=== PATIENT | female | born 1990 | race American Indian/Alaskan Native ===

== ENCOUNTER 2022-02-24 21:39 | Emergency (ER) | payer MEDICAID ==
[2022-02-24] MEDS ORDERED: KETOROLAC 30 MG/1 ML INJ IV ONE (23:10)
[2022-02-24] MEDS ORDERED: SODIUM CHLORIDE 0.9% 1000 ML 1,000 ML IV ONE (23:10)
[2022-02-24] MEDS ORDERED: METOCLOPRAMIDE 10 MG/2 ML INJ IV ONE (23:10)
[2022-02-24] MEDS ORDERED: diphenhydrAMINE 50 MG/ML VIAL IV ONE (23:10)
--- NOTE | 2022-02-24 23:18 | Emergency Department Report ---
ED Headache HPI - General Chief Complaint: Eye Problems Stated Complaint: BLURRY VISION; migraine headache Source: patient, RN notes reviewed Exam Limitations: no limitations - History of Present Illness Initial Comments: Patient is a 31-year-old -[place] female with a history of asthma and migraine headaches who presents to the ED with complaint of acute onset persistent severe diffuse headache with blurry vision and nausea as well as photophobia for the last 3 hours. Patient states that the symptoms started with blurry vision and tingling sensation in her arms and chest wall and followed by severe headache. Patient describes the headache as typical of her chronic headaches but with worsening aura and prodromal symptoms. Patient denies chest pain, shortness of breath, dizziness, syncope, fever, chills, cough, nasal and sinus congestion, sore throat, palpitations, abdominal pain or vomiting. Timing/Duration: 1-3 hours, constant Quality: severe, constant, pressure, sharp Head Injury Location: frontal Recent Head Trauma: no recent headache/trauma Associated Symptoms: denies symptoms, facial pain, vision changes (Blurry vision). denies: confusion, fatigue, fever/chills, flushing, loss of consciousness, nasal congestion, nasal drainage, numbness in legs/feet, rash, seizures Allergies/Adverse Reactions: Allergies No Known Allergies Allergy (Verified 02/24/22 23:07) Home Medications: Ambulatory Orders Butalb/Acetamin/Caff 50-325-40 [Fioricet 50-325-40] 1 - 2 tab PO Q6HR PRN #15 tab 02/25/22 Ketorolac [Toradol] 10 mg PO Q8H PRN #20 tab 02/25/22 Promethazine [Phenergan] 25 mg PO Q6HR PRN #30 tab 02/25/22 ED Review of Systems ROS: Stated complaint: BLURRY VISION Other details as noted in HPI Constitutional: denies: chills, fever Eyes: other (Bilateral blurry vision and photophobia). denies: eye pain, eye discharge, vision change ENT: denies: ear pain, throat pain Respiratory: denies: cough, shortness of breath, wheezing Cardiovascular: denies: chest pain, palpitations Endocrine: no symptoms reported Gastrointestinal: nausea. denies: abdominal pain, vomiting, diarrhea Genitourinary: denies: urgency, dysuria, discharge Musculoskeletal: denies: back pain, joint swelling, arthralgia Skin: denies: rash, lesions Neurological: headache. denies: weakness, paresthesias Psychiatric: denies: anxiety, depression Hematological/Lymphatic: denies: easy bleeding, easy bruising ED Past Medical Hx - Past Medical History Previous Medical History?: Yes Hx Headaches / Migraines: Yes Hx Asthma: Yes - Surgical History Past Surgical History?: Yes Additional Surgical History: Tubaligation, Ectpoc - Medications Home Medications: Home Medications Medication Instructions Recorded Confirmed Last Taken Type Butalb/Acetamin/Caff 50-325-40 1 - 2 tab PO Q6HR PRN #15 tab 02/25/22 Unknown Rx [Fioricet 50-325-40] Ketorolac [Toradol] 10 mg PO Q8H PRN #20 tab 02/25/22 Unknown Rx Promethazine [Phenergan] 25 mg PO Q6HR PRN #30 tab 02/25/22 Unknown Rx ED Physical Exam - General Limitations: No Limitations General appearance: alert, in no apparent distress - Head Head exam: Present: atraumatic, normocephalic, normal inspection - Eye Eye exam: Present: normal appearance, PERRL, EOMI Pupils: Present: normal accommodation - ENT ENT exam: Present: normal exam, normal orophraynx, mucous membranes moist, TM's normal bilaterally, normal external ear exam - Neck Neck exam: Present: normal inspection, full ROM. Absent: tenderness - Respiratory Respiratory exam: Present: normal lung sounds bilaterally. Absent: respiratory distress, wheezes, rales, rhonchi, chest wall tenderness, accessory muscle use, decreased breath sounds - Cardiovascular Cardiovascular Exam: Present: regular rate, normal rhythm, normal heart sounds. Absent: systolic murmur, diastolic murmur, rubs, gallop - GI/Abdominal GI/Abdominal exam: Present: soft, normal bowel sounds. Absent: tenderness, guarding, rebound, hyperactive bowel sounds - Extremities Exam Extremities exam: Present: normal inspection, full ROM, normal capillary refill. Absent: tenderness - Back Exam Back exam: Present: normal inspection, full ROM. Absent: tenderness, CVA tenderness (R), CVA tenderness (L), muscle spasm, paraspinal tenderness, vertebral tenderness - Neurological Exam Neurological exam: Present: alert, oriented X3, CN II-XII intact, normal gait, reflexes normal - Psychiatric Psychiatric exam: Present: normal affect, normal mood, anxious - Skin Skin exam: Present: warm, dry, intact, normal color. Absent: rash ED Course Vital Signs 02/24/22 02/24/22 23:02 23:34 Temperature 98.5 F Pulse Rate 91 H Respiratory 16 18 Rate Blood Pressure 145/106 [Right] O2 Sat by Pulse 100 Oximetry ED Medical Decision Making - Medical Decision Making This is a 31-year-old -[place] female with a history of asthma and migraine headaches who presents to the ED with complaint of acute onset persiste nt severe diffuse headache with blurry vision and nausea as well as photophobia for the last 3 hours. Patient states that the symptoms started with blurry vision and tingling sensation in her arms and chest wall and followed by severe headache. Patient describes the headache as typical of her chronic headaches but with worsening aura and prodromal symptoms. In the ED, patient is alert and oriented x3 and is not in any distress. Patient was treated in the ED with a cocktail of medications for migraine headaches including Reglan 10 mg IV x1, Benadryl 25 mg IV x1, and Toradol 30 mg IV x1 in addition to normal saline 1 L IV bolus x1. On reevaluation, patient headache resolved, patient has not had any nausea or vomiting while in the ED. Patient stated that the photophobia also resolved. Patient was discharged home on medications and advised to follow-up with her primary care physician in 5 to 7 days for reevaluation. Patient was also advised to return to the ED immediately if symptoms get worse. - Differential Diagnosis Migraine headache; tension headache; sinus headache; anxiety Critical care attestation.: If time is entered above; I have spent that time in minutes in the direct care of this critically ill patient, excluding procedure time. ED Disposition Clinical Impression: Migraine headache with aura Qualifiers: Status migrainosus presence: with status migrainosus Intractability: not intractable Qualified Code(s): G43.101 - Migraine with aura, not intractable, with status migrainosus Nausea & vomiting Qualifiers: Vomiting type: unspecified Qualified Code(s): R11.2 - Nausea with vomiting, unspecified Disposition: 01 HOME / SELF CARE / HOMELESS Is pt being admited?: No Does the pt Need Aspirin: No Condition: Stable Instructions: Recurrent Migraine Headache, [id number], Nausea and Vomiting, Adult, [id number] Additional Instructions: Take medication with food, drink plenty of fluids and follow-up with your primary care physician in 7 to 10 days for reevaluation. Return to the ED immediately if symptoms get worse. Prescriptions: Butalb/Acetamin/Caff 50-325-40 [Fioricet 50-325-40] 1 - 2 tab PO Q6HR PRN #15 tab PRN Reason: Headache Promethazine [Phenergan] 25 mg PO Q6HR PRN #30 tab PRN Reason: Nausea Ketorolac [Toradol] 10 mg PO Q8H PRN #20 tab PRN Reason: Pain Referrals: [facility] [Provider Group] - 3-5 Days Forms: Work/School Release Form(ED) Time of Disposition: 00:59 Print Language: BELARUSIAN
[2022-02-25 01:53] VITALS: BP 142/98
== END 2022-02-25 01:53 | disposition home or self-care (01) ==
LOC: ED 21:39
DX: G43.109 Migraine with aura, not intractable, without status migrainosus (principal); R11.2 Nausea with vomiting, unspecified; J45.909 Unspecified asthma, uncomplicated; Z98.890 Other specified postprocedural states
CPT/HCPCS: 96361; 96374; 96375; 99282; J1200; J1885; J2765; J7030; Q0162

== ENCOUNTER 2022-05-30 19:46 | Emergency (ER) | payer MEDICAID ==
[2022-05-30 20:54] VITALS: BP 122/84
[2022-05-31] MEDS ORDERED: HYDROcodone/ACETAMINOPHEN 5-325 MG TAB PO ONE ×2 (01:41→04:37)
[2022-05-31] MEDS ORDERED: IBUPROFEN 600 MG TAB PO ONE (01:42)
--- NOTE | 2022-05-31 02:51 | Cat Scan Report ---
CT CERVICAL SPINE WO CON INDICATION: NECK PAIN DUE TO FALL. TECHNIQUE: All CT scans at this location are performed using the following dose modulation technique: Automated exposure control. CONTRAST: None. COMPARISON: None available. FINDINGS: Satisfactory alignment without vertebral compression or significant degenerative change. No soft tissue injury or suspicious soft tissue abnormality. IMPRESSION: Negative CT cervical spine. Signer Name: Edgardo Lamb MD Signed: 05/31/2022 2:46 AM Workstation Name: [id number]
--- NOTE | 2022-05-31 04:17 | Emergency Department Report ---
ED Fall HPI - General Chief Complaint: Fall Stated Complaint: FALL, NECKPAIN, BACK PAIN Time Seen by Provider: 05/31/22 01:32 Source: patient Mode of arrival: Ambulatory - History of Present Illness Initial Comments: 30-year-old female no significant past medical history reports to the ER after falling down about 10 stairs on Friday about 5 days ago. Patient denies no loss of consciousness, no headache and no head injury. Patient reports right- sided low back pain and neck pain. No numbness or tingling in her legs. 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 Patient has not taken anything for her pain currently. Pain is about an 8 out of 10. No other acute signs or symptoms noted. No loss of bowel or bladder function. - Related Data Previous Rx's Medication Instructions Recorded Last Taken Type Butalb/Acetamin/Caff 50-325-40 1 - 2 tab PO Q6HR PRN #15 tab 02/25/22 Unknown Rx [Fioricet 50-325-40] Ketorolac [Toradol] 10 mg PO Q8H PRN #20 tab 02/25/22 Unknown Rx Promethazine [Phenergan] 25 mg PO Q6HR PRN #30 tab 02/25/22 Unknown Rx Ibuprofen [Motrin] 600 mg PO Q8H PRN 7 Days #21 tablet 05/31/22 Unknown Rx methOCARBAMOL [Robaxin TAB] 500 mg PO BID PRN 7 Days #21 tab 05/31/22 Unknown Rx Allergies Allergy/AdvReac Type Severity Reaction Status Date / Time No Known Allergies Allergy Verified 02/24/22 23:07 ED Review of Systems ROS: Stated complaint: FALL, NECKPAIN, BACK PAIN Other details as noted in HPI Comment: All other systems reviewed and negative Musculoskeletal: back pain, myalgia, other (Right lower back pain) ED Past Medical Hx - Past Medical History Previous Medical History?: Yes Hx Headaches / Migraines: Yes Hx Asthma: Yes - Surgical History Additional Surgical History: Tubaligation, Ectpoc - Medications Home Medications: Home Medications Medication Instructions Recorded Confirmed Last Taken Type Butalb/Acetamin/Caff 50-325-40 1 - 2 tab PO Q6HR PRN #15 tab 02/25/22 Unknown Rx [Fioricet 50-325-40] Ketorolac [Toradol] 10 mg PO Q8H PRN #20 tab 02/25/22 Unknown Rx Promethazine [Phenergan] 25 mg PO Q6HR PRN #30 tab 02/25/22 Unknown Rx Ibuprofen [Motrin] 600 mg PO Q8H PRN 7 Days #21 tablet 05/31/22 Unknown Rx methOCARBAMOL [Robaxin TAB] 500 mg PO BID PRN 7 Days #21 tab 05/31/22 Unknown Rx ED Physical Exam - General Limitations: No Limitations General appearance: alert, in no apparent distress - Head Head exam: Present: atraumatic, normocephalic - Eye Eye exam: Present: normal appearance - ENT ENT exam: Present: mucous membranes moist - Neck Neck exam: Present: normal inspection - Respiratory Respiratory exam: Present: normal lung sounds bilaterally. Absent: respiratory distress - Cardiovascular Cardiovascular Exam: Present: regular rate, normal rhythm. Absent: systolic murmur, diastolic murmur, rubs, gallop - GI/Abdominal GI/Abdominal exam: Present: soft, normal bowel sounds - Extremities Exam Extremities exam: Present: normal inspection - Back Exam Back exam: Present: normal inspection, tenderness (Right lower lumbar area, central cervical area around C5 C4 with no step-off. Full range of motion intact.) - Neurological Exam Neurological exam: Present: alert, oriented X3 - Psychiatric Psychiatric exam: Present: normal affect, normal mood - Skin Skin exam: Present: warm, dry, intact, normal color. Absent: rash ED Course Vital Signs 05/30/22 20:10 Temperature 98.1 F Pulse Rate 88 Respiratory 18 Rate Blood Pressure 122/84 O2 Sat by Pulse 100 Oximetry ED Medical Decision Making - Radiology Data Radiology results: report reviewed ct cervical IMPRESSION: Negative CT cervical spine. - Medical Decision Making 32-year-old female with no significant past medical history reports to the ER after falling down about 10 steps on Friday. Patient reports neck and back pain. No gait problems, no nausea no vomiting, no neurological symptoms reported. Patient has not taken any medications for pain. On physical exam there is right lower back pain with no spinal tenderness noted. Patient does have cervical tenderness around around C4 and 5. No respiratory complaints. No step-offs noted. CT of cervical neck is negative with no acute process. - IMPRESSION: Negative CT cervical spine. Patient received oral medication for pain. Patient reports a decrease in pain medicine. Patient is stable for discharge home with follow-up with her primary care provid er. Patient is informed that his symptoms are generally worse to report back to the ER. Patient agrees with plan of care verbalizes understanding. Vital Signs 05/30/22 20:10 Temperature 98.1 F Pulse Rate 88 Respiratory 18 Rate Blood Pressure 122/84 O2 Sat by Pulse 100 Oximetry Critical care attestation.: If time is entered above; I have spent that time in minutes in the direct care of this critically ill patient, excluding procedure time. ED Disposition Clinical Impression: Neck pain Back pain Qualifiers: Back pain location: low back pain Chronicity: acute Back pain laterality: right Sciatica presence: without sciatica Qualified Code(s): M54.50 - Low back pain, unspecified Disposition: HOME / SELF CARE / HOMELESS Is pt being admited?: No Condition: Stable Instructions: Neck Exercises, Radicular Pain, Acute Back Pain, Adult Prescriptions: Ibuprofen [Motrin] 600 mg PO Q8H PRN 7 Days #21 tablet PRN Reason: Pain methOCARBAMOL [Robaxin TAB] 500 mg PO BID PRN 7 Days #21 tab PRN Reason: Pain , Severe (7-10) Referrals: MARIE LAROSE MD [Primary Care Provider] - 3-5 Days Time of Disposition: 04:26
[2022-05-31] MEDS ORDERED: predniSONE 20 MG TAB PO ONE (04:37)
== END 2022-05-31 05:00 | disposition home or self-care (01) ==
LOC: ED 19:46
DX: M54.2 Cervicalgia (principal); M54.9 Dorsalgia, unspecified; G43.909 Migraine, unspecified, not intractable, without status migrainosus; J45.909 Unspecified asthma, uncomplicated; Z79.899 Other long term (current) drug therapy
CPT/HCPCS: 72125; 99283

== ENCOUNTER 2022-08-08 20:58 | Emergency (ER) | payer MEDICAID ==
[2022-08-09 00:05] LABS: Hematocrit 31.1 % (30.3-42.9); Hemoglobin 10.2 gm/dl (10.1-14.3); Mean Corpuscular HGB Conc 33 % (30-34); Platelet Count 290 K/mm3 (140-440); Red Blood Count 4.97 M/mm3 (3.65-5.03)
[2022-08-09 00:06] LABS: Mean Corpuscular Volume 63 fl (79-97); Red Cell Distribution Width 20.4 % (13.2-15.2)
[2022-08-09 00:15] LABS: BUN/Creatinine Ratio 14; Blood Urea Nitrogen 11 mg/dL (7-17); Calcium 9.3 mg/dL (8.4-10.2); Hemolysis Index 7
[2022-08-09 01:11] LABS: Anisocytosis 1+; Basophils % (Manual) 0 % (0.0-1.8); Hypochromasia 2+; Platelet Estimate Consistent w Auto; Total Cells Counted 100
[2022-08-09] MEDS ORDERED: KETOROLAC 30 MG/1 ML INJ IM ONE (07:50)
[2022-08-09] MEDS ORDERED: dexAMETHasone 20 MG/5 ML VIAL IM ONE (07:50)
--- NOTE | 2022-08-09 08:15 | Emergency Department Report ---
ED Headache HPI - General Chief Complaint: Chest Pain Stated Complaint: CHEST PAIN AND DIZZINESS - History of Present Illness Initial Comments: 32-year-old female presents to the ED complaining of headache times several days. Patient states that she has a history of migraine. She states takes Topamax and Imitrex for prevention. She states that this headache do not feel like a migraine. States that she has been having coughing, facial pressure, and nasal congestion times several weeks. States taking prior medication without any relief. Denies any nausea or vomiting at present time. States symptoms are worse when she is at work she when she is bending forward. She states that it makes her feel dizzy. Patient is alert and oriented x3. No acute distress noted. No ill appearance noted. Quality: mild Head Injury Location: frontal Recent Head Trauma: no recent headache/trauma Modifying Factors: improves with: rest Associated Symptoms: denies symptoms Allergies/Adverse Reactions: Allergies No Known Allergies Allergy (Verified 02/24/22 23:07) Home Medications: Ambulatory Orders Butalb/Acetamin/Caff 50-325-40 [Fioricet 50-325-40] 1 - 2 tab PO Q6HR PRN #15 tab 02/25/22 Ketorolac [Toradol] 10 mg PO Q8H PRN #20 tab 02/25/22 Promethazine [Phenergan] 25 mg PO Q6HR PRN #30 tab 02/25/22 Ibuprofen [Motrin] 600 mg PO Q8H PRN 7 Days #21 tablet 05/31/22 methOCARBAMOL [Robaxin TAB] 500 mg PO BID PRN 7 Days #21 tab 05/31/22 predniSONE [Deltasone] 40 mg PO QDAY 5 Days #10 tab 05/31/22 Amoxicillin/K Clav Tab [Augmentin 875 mg] 1 tab PO Q12HR 10 Days #20 tab 08/09/22 Brompheniramine/Pseudoephed/Dm [Bromfed Dm Cough Syrup] 118 ml PO BID 5 Days #118 ml 08/09/22 Ketorolac [Toradol] 10 mg PO Q6H PRN 5 Days #20 tab 08/09/22 predniSONE [Deltasone] 50 mg PO QDAY 5 Days #5 tab 08/09/22 ED Review of Systems ROS: Stated complaint: CHEST PAIN AND DIZZINESS Other details as noted in HPI Constitutional: denies: chills, fever Eyes: denies: eye pain, eye discharge, vision change ENT: denies: ear pain, throat pain Respiratory: cough. denies: shortness of breath, wheezing Cardiovascular: denies: chest pain, palpitations Endocrine: no symptoms reported Gastrointestinal: denies: abdominal pain, nausea, diarrhea Genitourinary: denies: urgency, dysuria, discharge Musculoskeletal: denies: back pain, joint swelling, arthralgia Skin: denies: rash, lesions Neurological: denies: headache, weakness, paresthesias Psychiatric: denies: anxiety, depression Hematological/Lymphatic: denies: easy bleeding, easy bruising ED Past Medical Hx - Past Medical History Hx Headaches / Migraines: Yes Hx Asthma: Yes - Surgical History Additional Surgical History: Tubaligation, Ectpoc - Medications Home Medications: Home Medications Medication Instructions Recorded Confirmed Last Taken Type Butalb/Acetamin/Caff 50-325-40 1 - 2 tab PO Q6HR PRN #15 tab 02/25/22 Unknown Rx [Fioricet 50-325-40] Ketorolac [Toradol] 10 mg PO Q8H PRN #20 tab 02/25/22 Unknown Rx Promethazine [Phenergan] 25 mg PO Q6HR PRN #30 tab 02/25/22 Unknown Rx Ibuprofen [Motrin] 600 mg PO Q8H PRN 7 Days #21 tablet 05/31/22 Unknown Rx methOCARBAMOL [Robaxin TAB] 500 mg PO BID PRN 7 Days #21 tab 05/31/22 Unknown Rx predniSONE [Deltasone] 40 mg PO QDAY 5 Days #10 tab 05/31/22 Unknown Rx Amoxicillin/K Clav Tab [Augmentin 1 tab PO Q12HR 10 Days #20 tab 08/09/22 Unknown Rx 875 mg] Brompheniramine/Pseudoephed/Dm 118 ml PO BID 5 Days #118 ml 08/09/22 Unknown Rx [Bromfed Dm Cough Syrup] Ketorolac [Toradol] 10 mg PO Q6H PRN 5 Days #20 tab 08/09/22 Unknown Rx predniSONE [Deltasone] 50 mg PO QDAY 5 Days #5 tab 08/09/22 Unknown Rx ED Physical Exam - General Limitations: No Limitations General appearance: alert, in no apparent distress - Head Head exam: Present: atraumatic, normocephalic - Eye Eye exam: Present: normal appearance - ENT ENT exam: Present: mucous membranes moist - Neck Neck exam: Present: normal inspection - Respiratory Respiratory exam: Present: normal lung sounds bilaterally. Absent: respiratory distress - Cardiovascular Cardiovascular Exam: Present: regular rate, normal rhythm. Absent: systolic murmur, diastolic murmur, rubs, gallop - GI/Abdominal GI/Abdominal exam: Present: soft, normal bowel sounds - Extremities Exam Extremities exam: Present: normal inspection - Back Exam Back exam: Present: normal inspection - Neurological Exam Neurological exam: Present: alert, oriented X3 - Psychiatric Psychiatric exam: Present: normal affect, normal mood - Skin Skin exam: Present: warm, dry, intact, normal color. Absent: rash ED Course Vital Signs 08/08/22 23:00 Temperature 98.2 F Pulse Rate 77 Respiratory 16 Rate Blood Pressure 123/93 [Right] O2 Sat by Pulse 99 Oximetry ED Medical Decision Making - Lab Data Result diagrams: 08/08/22 23:39 08/08/22 23:39 - Medical Decision Making 32-year-old female presents to the ED complaining of headache times several days. Patient states that she has a history of migraine. She states takes Topamax and Imitrex for prevention. She states that this headache do not feel like a migraine. States that she has been having coughing, facial pressure, and nasal congestion times several weeks. States taking prior medication without any relief. Denies any nausea or vomiting at present time. States symptoms are worse when she is at work she when she is bending forward. She states that it makes her feel dizzy. Patient is alert and oriented x3. No acute distress noted. No ill appearance noted. Physical examination patient has tenderness noted to the frontal cavity nasal turbinates are swollen. Erythema noted tonsil area. Rechecked the patient is resting quietly , comfortable and feeling better. I discussed the results of diagnostic study, my clinical impression and the plan for further treatment with the patient. Patient agrees with plan and discharge at this present time. All question addressed. I have given the patient instruction regarding a diagnosis ,expectation ,follow- up and return precaution. I explained to the patient that emergent condition may arise and to return to the ED for new worsen and any new persisting condition. I have explained the importance of following up with the primary care physician or referral physician listed below has instructed. The patient verbalized understanding of discharge instruction. Abnormal Lab Results 08/08/22 08/08/22 23:39 23:39 WBC 7.0 RBC 4.97 Hgb 10.2 Hct 31.1 MCV 63 L MCH 20 L MCHC 33 RDW 20.4 H Plt Count 290 Add Manual Diff Complete Total Counted 100 Seg Neuts % (Manual) 43.0 Band Neutrophils % 0 Lymphocytes % (Manual) 53.0 H Reactive Lymphs % (Man) 0 Monocytes % (Manual) 1.0 Eosinophils % (Manual) 3.0 Basophils % (Manual) 0 Metamyelocytes % 0 Myelocytes % 0 Promyelocytes % 0 Blast Cells % 0 Nucleated RBC % Not Reportable Seg Neutrophils # Man 3.0 Band Neutrophils # 0.0 Lymphocytes # (Manual) 3.7 Abs React Lymphs (Man) 0.0 Monocytes # (Manual) 0.1 Eosinophils # (Manual) 0.2 Basophils # (Manual) 0.0 Metamyelocytes # 0.0 Myelocytes # 0.0 Promyelocytes # 0.0 Blast Cells # 0.0 WBC Morphology Not Reportable Hypersegmented Neuts Not Reportable Hyposegmented Neuts Not Reportable Hypogranular Neuts Not Reportable Smudge Cells Not Reportable Toxic Granulation Not Reportable Toxic Vacuolation Not Reportable Dohle Bodies Not Reportable Pelger-Huet Anomaly Not Reportable Linsey Rods Not Reportable Platelet Estimate Consistent w auto Clumped Platelets Not Reportable Plt Clumps, EDTA Not Reportable Large Platelets Not Reportable Giant Platelets Not Reportable Platelet Satelliting Not Reportable Plt Morphology Comment Not Reportable RBC Morphology Not Reportable Dimorphic RBCs Not Reportable Polychromasia Not Reportable Hypochromasia 2+ Poikilocytosis Not Reportable Anisocytosis 1+ Microcytosis 2+ Macrocytosis Not Reportable Spherocytes Not Reportable Pappenheimer Bodies Not Reportable Sickle Cells Not Reportable Target Cells Not Reportable Tear Drop Cells Not Reportable Ovalocytes Not Reportable Helmet Cells Not Reportable [place] Bodies Not Reportable [place] Rings Not Reportable Su Cells Not Reportable Bite Cells Not Reportable Crenated Cell Not Reportable Elliptocytes Not Reportable Acanthocytes (Spur) Not Reportable Rouleaux Not Reportable Hemoglobin C Crystals Not Reportable Schistocytes Not Reportable Malaria parasites Not Reportable Ian Bodies Not Reportable Hem Pathologist Commnt No Sodium 139 Potassium 4.2 Chloride 104.8 Carbon Dioxide 24 Anion Gap 14 BUN 11 Creatinine 0.8 Estimated GFR > 60 BUN/Creatinine Ratio 14 Glucose 80 Calcium 9.3 Troponin T < 0.010 Critical care attestation.: If time is entered above; I have spent that time in minutes in the direct care of this critically ill patient, excluding procedure time. ED Disposition Clinical Impression: Acute sinusitis Qualifiers: Sinusitis location: frontal Recurrence: non-recurrent Qualified Code(s): J01.10 - Acute frontal sinusitis, unspecified Migraine Qualifiers: Migraine type: without aura Status migrainosus presence: without status migrainosus Disposition: HOME / SELF CARE / HOMELESS Is pt being admited?: No Does the pt Need Aspirin: No Condition: Stable Instructions: Sinusitis, Adult, [id number], How to Perform a Sinus Rinse, [id number], Migraine Headache, [id number] Additional Instructions: Keep appointment with neurology Return to the ED for any worsening symptom Prescriptions: Amoxicillin/K Clav Tab [Augmentin 875 mg] 1 tab PO Q12HR 10 Days #20 tab Brompheniramine/Pseudoephed/Dm [Bromfed Dm Cough Syrup] 118 ml PO BID 5 Days #118 ml predniSONE [Deltasone] 50 mg PO QDAY 5 Days #5 tab Ketorolac [Toradol] 10 mg PO Q6H PRN 5 Days #20 tab PRN Reason: Pain Referrals: PRIMARY CARE, [Primary Care Provider] - 3-5 Days [facility] [Provider Group] - 3-5 Days Forms: Work/School Release Form(ED) Time of Disposition: 08:25
--- NOTE | 2022-08-09 10:33 | Electrocardiograph Report ---
[facility] Test Date: 2022-08-08 Test Time: 23:09:23 Pat Name: MODE LOPEZ Department: Room: Gender: F Senior Systems Architect: NURSE : 1990 Requested By: REJI STANLEY Order Number: [id number] Reading MD: Percy Veras Measurements Intervals [place] Rate: 73 P: 56 NE: 162 QRS: 53 QRSD: 67 T: 26 QT: 383 QTc: 422 Interpretive Statements Sinus rhythm No previous ECG available for comparison Electronically Signed On 08-09-2022 10:33:19 EDT by Percy Veras
[2022-08-09 10:37] VITALS: BP 123/63
== END 2022-08-09 09:19 | disposition home or self-care (01) ==
LOC: ED 20:58
DX: J01.90 Acute sinusitis, unspecified (principal); G43.909 Migraine, unspecified, not intractable, without status migrainosus; J45.909 Unspecified asthma, uncomplicated
CPT/HCPCS: 36415; 80048; 84484; 85007; 85025; 93005; 96372; 99283; J1100; J1885